=== PATIENT | male | born 1990 | race Caucasian/White ===

== ENCOUNTER 2017-08-05 15:32 | Emergency (ER) | payer MEDICAID, OTHER ==
[~2017-08-05] VITALS: Ht 165.1 cm; Wt 63.0 kg
[2017-08-05 15:36] VITALS: BP 121/74
[2017-08-05] MEDS ORDERED: FLUCONAZOLE 100 MG TABLET PO ONE (16:30)
== END 2017-08-05 17:01 | disposition home or self-care (01) ==
LOC: ED 16:24
DX: B37.42 Candidal balanitis (principal)
CPT/HCPCS: 81003; 82962; 99283; 99284